=== PATIENT | female | born 1990 | race African-American/Black ===

== ENCOUNTER 2016-07-14 11:59 | Emergency (ER) | payer MEDICAID ==
[~2016-07-14] VITALS: Ht 167.6 cm; Wt 62.0 kg
[~2016-07-14 11:59] MED LIST: MULT-230 PEG; MULT-516 PO
[2016-07-14 12:01] VITALS: BP 120/72
== END 2016-07-14 12:43 | disposition home or self-care (01) ==
LOC: ED 12:10
DX: K08.89 Other specified disorders of teeth and supporting structures (principal)
CPT/HCPCS: 99283

== ENCOUNTER 2018-08-28 13:52 | Emergency (ER) | payer MEDICAID ==
[~2018-08-28] VITALS: Ht 170.2 cm; Wt 69.2 kg
[~2018-08-28 13:52] MED LIST changes: -MULT-230 PEG; +MULT-806 PEG
[2018-08-28 14:07] VITALS: BP 113/56
--- NOTE | 2018-08-28 14:40 | NUR ---
Patient/Caregiver given discharge instructions and they have confirmed that they understand the instructions. Patient ambulatory with steady gait.
== END 2018-08-28 14:41 | disposition home or self-care (01) ==
LOC: ED 14:00
DX: H00.014 Hordeolum externum left upper eyelid (principal)
CPT/HCPCS: 99283

== ENCOUNTER 2019-04-12 21:03 | Emergency (ER) | payer MEDICAID ==
[~2019-04-12] VITALS: Ht 170.2 cm; Wt 64.3 kg
--- NOTE | 2019-04-12 21:17 | NUR ---
PT TO ED FROM HOME. C/O UTI SX; FREQUENCY/URGENCY/DYSURIA/HEMATURIA. C/O NAUSEA. VOMITX1. HX KIDNEY INFECTION, NEPHROSTOMY TUBES/STENTS. C/O BACK PAIN OVER KIDNEYS BILATERALLY. ERMD AT BEDSIDE FOR EVAL. VSS. CALL [facility] IN REACH. ATTTEMPT X1 FOR UA, UNABLE TO.
[2019-04-12 21:53] LABS: MEAN CORPUSCULAR HEMOGLOBIN 31.7 pg (27.0-34.8); MEAN CORPUSCULAR HGB CONC 32.6 g/dL (32.4-35.8); MEAN PLATELET VOLUME 7.9 fL (7.4-10.4); PLATELET COUNT 317 x10^3/uL (130-400); RED BLOOD COUNT 4.26 x10^6/uL (3.82-5.3); RED CELL DISTRIBUTION WIDTH 13.1 % (9.6-15.2)
[2019-04-12] MEDS ORDERED: ONDANSETRON 2MG/ML, 2ML ONE (21:53)
[2019-04-12] MEDS ORDERED: KETOROLAC 30 MG/1 ML ONE (21:53)
--- NOTE | 2019-04-12 21:57 | NUR ---
fluids/meds per jun. plan for ct. vss. call [facility] in reach. as
[2019-04-12] MEDS ORDERED: ONDANSETRON 2MG/ML, 2ML IVPush ONE (22:00)
[2019-04-12] MEDS ORDERED: KETOROLAC 30 MG/1 ML IVPush ONE (22:00)
[2019-04-12] MEDS ORDERED: SODIUM CHLORIDE 0.9% 1,000ML IVBOLUS ONE (22:00)
[2019-04-12 22:02] LABS: ALANINE AMINOTRANSFERASE 23 U/L (12-78); ALBUMIN 3.7 g/dL (3.4-5.0); ANION GAP 8 mmol/L (5-15); CALCIUM 8.8 mg/dL (8.5-10.1); CHLORIDE 110 mmol/L (98-107); CREATININE 0.97 mg/dL (0.55-1.02)
[2019-04-12 22:07] LABS: ALKALINE PHOSPHATASE 54 U/L (45-117); BILIRUBIN,TOTAL 0.3 mg/dL (0.2-1.0); TOTAL PROTEIN 7.5 g/dL (6.4-8.2)
[2019-04-12 22:19] LABS: BASOPHILS # (AUTO) 0.09 x10^3/uL (0-0.1); BASOPHILS % (AUTO) 1 % (0-1); EOSINOPHILS # (AUTO) 0.07 x10^3/uL (0-0.4); EOSINOPHILS % (AUTO) 1 % (1-7); LYMPHOCYTES # (AUTO) 2.54 x10^3/uL (1-3.4); LYMPHOCYTES % (AUTO) 25 % (22-44); MD SCAN; MONOCYTES # (AUTO) 0.74 x10^3/uL (0.2-0.8); MONOCYTES % (AUTO) 7 % (2-9); NEUTROPHILS # (AUTO) 6.66 x10^3/uL (1.8-6.8); NEUTROPHILS % (AUTO) 66 % (42-75)
[2019-04-12] MEDS ORDERED: MORPHINE SULFATE 4 MG/ML, 1ML ONE (22:46)
[2019-04-12 22:55] LABS: MICROSCOPIC AUTO
[2019-04-12 22:57] LABS: CULTURE INDICATED? YES
[2019-04-12 23:00] VITALS: BP 110/67
[2019-04-12] MEDS ORDERED: MORPHINE SULFATE 4 MG/ML, 1ML IVPush PRN (23:00)
== END 2019-04-12 23:29 | disposition home or self-care (01) ==
LOC: ED 22:15
DX: N30.01 Acute cystitis with hematuria (principal); Z72.89 Other problems related to lifestyle
CPT/HCPCS: 36415; 74176; 80053; 81001; 83690; 84703; 85025; 87077; 87086; 87186; 96374; 96375; 99284; J1885; J2270; J2405; J7030

== ENCOUNTER 2020-03-02 19:28 | Emergency (ER) | payer MEDICAID ==
[~2020-03-02] VITALS: Ht 170.2 cm; Wt 64.2 kg
[2020-03-02 19:30] VITALS: BP 101/57
--- NOTE | 2020-03-02 20:26 | NUR ---
ERP AT BEDSIDE FOR ASSESSMENT
[2020-03-02] MEDS ORDERED: KETOROLAC 30 MG/1 ML IM ONE (20:30)
[2020-03-02] MEDS ORDERED: KETOROLAC 60 MG/2 ML ONE (20:43)
--- NOTE | 2020-03-02 20:52 | NUR ---
PT MEDICATED PER [facility] FOR PAIN AT THIS TIME, PT TOLERATED WELL. LAB ALSO AT BEDSIDE FOR DRAW
[2020-03-02 20:56] LABS: MICROSCOPIC INDICATED
[2020-03-02 20:59] LABS: BASOPHILS % (AUTO) 1 % (0-1); EOSINOPHILS % (AUTO) 0 % (1-7); LYMPHOCYTES % (AUTO) 26 % (22-44); MEAN CORPUSCULAR HEMOGLOBIN 30.7 pg (27.0-34.8); MEAN CORPUSCULAR HGB CONC 33.1 g/dL (32.4-35.8); MEAN PLATELET VOLUME 8.3 fL (7.4-10.4); MONOCYTES % (AUTO) 7 % (2-9); NEUTROPHILS % (AUTO) 67 % (42-75); PLATELET COUNT 313 x10^3/uL (130-400); RED BLOOD COUNT 4.17 x10^6/uL (3.82-5.3); RED CELL DISTRIBUTION WIDTH 12.9 % (9.6-15.2)
[2020-03-02 21:01] LABS: MD NO
[2020-03-02 21:08] LABS: ALBUMIN 3.9 g/dL (3.4-5.0); ANION GAP 5 mmol/L (5-15); CHLORIDE 114 mmol/L (98-107); CREATININE 0.89 mg/dL (0.55-1.02)
--- NOTE | 2020-03-02 21:16 | NUR ---
ALL RESULTS BACK, CHART UP FOR RECHECK
== END 2020-03-02 21:39 | disposition home or self-care (01) ==
LOC: ED 20:21
DX: R10.9 Unspecified abdominal pain (principal); R30.0 Dysuria; R32 Unspecified urinary incontinence; Z87.442 Personal history of urinary calculi
CPT/HCPCS: 36415; 80048; 81001; 82040; 84703; 85025; 87077; 87086; 87186; 96372; 99283; J1885